=== PATIENT | female | born 1970 | race Two or more races ===

== ENCOUNTER 2016-11-08 18:54 | Emergency (ER) | payer MEDICAID ==
[~2016-11-08] VITALS: Ht 165.1 cm; Wt 81.6 kg
[2016-11-08 21:00] VITALS: BP 135/76
[2016-11-08] MEDS ORDERED: KETOROLAC TROMETH 60MG/2ML VIAL IM ONE (21:30)
[2016-11-09] MEDS ORDERED: LORazepam 0.5 MG TAB ONE (21:12)
== END 2016-11-08 21:39 | disposition home or self-care (01) ==
LOC: ER 18:59
DX: K04.7 Periapical abscess without sinus (principal)
CPT/HCPCS: 96372; 99283; J1885